=== PATIENT | female | born 1935 | race Caucasian/White ===

== ENCOUNTER 2016-11-09 11:35 | Inpatient (IN) | payer OTHER, MEDICARE ==
[2016-11-09 11:38] VITALS: BP 175/80; PULSE 84; RESP 20; O2SAT 96
[2016-11-09] MEDS ORDERED: TRIA37.53 PO (12:12)
[2016-11-09] MEDS ORDERED: AMLO2.5T PO (12:12)
[2016-11-09] MEDS ORDERED: SODIUM CHLORIDE 0.9% FLUSH 5 ML FLUSH IV FLUSH PRN (12:15)
[2016-11-09 12:30] VITALS: O2SAT 96
--- NOTE | 2016-11-09 12:50 | RADRPT ---
EXAM DATE/TIME: 11/09/2016 12:31 [facility] COMPARISON: No previous studies available for comparison. INDICATIONS : Weakness, combative. MEDICAL HISTORY : Alzheimer's SURGICAL HISTORY : None. ENCOUNTER: Initial ACUITY: 1 day PAIN SCORE: Non-responsive. LOCATION: Bilateral chest FINDINGS: Lungs are hyperaerated which accentuate the lung markings. There is also likely exaggerated kyphosis of the thoracic spine. Suboptimal visualization of the left lung base. Otherwise, no significant foca l pleural or parenchymal opacities. Cardiomediastinal contours are within normal limits given techniq ue and limitations. A fossa structures are grossly intact. CONCLUSION: 1. Limited visualization of the left lower lobe due to likely exaggerated kyphosis and low lung volum es. Formal PA and lateral views may be obtained if there is clinical findings suspicious for left low er lobe process. 2. Otherwise, no acute cardiopulmonary disease. David Richey MD on November 09, 2016 at 12:47 Board Certified Radiologist. This report was verified electronically.
[2016-11-09 12:58] LABS: BASOPHIL % 0.5 % (0.0-2.0); EOSINOPHIL # 0.1 TH/MM3 (0-0.4); EOSINOPHIL % 1.5 % (0.0-4.0); HEMO FLAGS DIFF FINAL; LYMPH % 16.5 % (9.0-44.0); LYMPHOCYTE # 1.2 TH/MM3 (1.0-4.8); MEAN CORPUSCULAR HEMOGLOBIN 26.6 PG (27.0-34.0); MEAN CORPUSCULAR HGB CONC 32.9 % (32.0-36.0); MONO % 10.6 % (0.0-8.0); NEUT % 70.9 % (16.0-70.0); PLATELET COUNT 266 TH/MM3 (150-450); RED BLOOD COUNT 4.82 MIL/MM3 (4.00-5.30); RED CELL DISTRIBUTION WIDTH 15.3 % (11.6-17.2); WHITE BLOOD COUNT 7.1 TH/MM3 (4.0-11.0)
[2016-11-09 13:08] LABS: APTT (PATIENT) 26.3 SEC (24.3-30.1); INTERNATIONAL NORMALIZED RATIO 0.9 RATIO; PROTHROMBIN TIME - PATIENT 10.3 SEC (9.8-11.6)
[2016-11-09 13:23] LABS: ANION GAP 9 MEQ/L (5-15); AST (GOT) 19 U/L (15-37); BICARBONATE 24.9 MEQ/L (21.0-32.0); BLOOD UREA NITROGEN 31 MG/DL (7-18); CHLORIDE 104 MEQ/L (98-107); GLOMERULAR FILTRATION RATE 27 ML/MIN (>89); POTASSIUM 3.9 MEQ/L (3.5-5.1); SODIUM (NA) 138 MEQ/L (136-145)
[2016-11-09 13:28] LABS: ALKALINE PHOSPHATASE 91 U/L (45-117); ALT (GPT) 22 U/L (10-53); TOTAL BILIRUBIN ADULT 0.8 MG/DL (0.2-1.0)
[2016-11-09 13:32] LABS: BACTERIA, URINE FEW /hpf; BLOOD, URINE NEG (NEG); COMMENT (UR) CATH-CULTURE IND; CULTURE IF INDICATED CATH CULTURE IND; GLUCOSE,URINE NEG (NEG); HYALINE CAST, URINE 4 /lpf (RARE); KETONE, URINE NEG (NEG); NITRITE,URINE NEG (NEG); PH, URINE 5.5 (5.0-8.5); RENAL EPITHELIAL CELLS <1 /hpf; URINE COLOR YELLOW (YELLW/STRAW)
[2016-11-09] MEDS ORDERED: cefTRIAXone INJ 1,000 MG in SODIUM CHLORIDE 0.9% INJ 100 ML IV STA (13:37)
--- NOTE | 2016-11-09 13:44 | RADRPT ---
EXAM DATE/TIME: 11/09/2016 13:18 [facility] COMPARISON: No previous studies available for comparison. INDICATIONS : Altered mental status,confused RADIATION DOSE: 56.39 CTDIvol (mGy) MEDICAL HISTORY : Dementia. SURGICAL HISTORY : None. ENCOUNTER: Initial ACUITY: 1 day PAIN SCALE: 0/10 LOCATION: cranial TECHNIQUE: Multiple contiguous axial images were obtained of the head. Using automated exposure control and adj ustment of the mA and/or kV according to patient size, radiation dose was kept as low as reasonably a chievable to obtain optimal diagnostic quality images. DICOM format image data is available electro nically for review and comparison. FINDINGS: There is no evidence for intracranial hemorrhage, mass effect, mass lesions, or edema. The visualize d bony structures appear intact. Moderate degree of brain atrophy is seen. Moderate periventricular white matter changes are seen nonspecific mostly consistent with chronic small vessel ischemic change s. There are no signs of acute infarction for technique. CONCLUSION: Chronic and small vessel ischemic changes without any evidence for acute hemorrhage o r mass effect. Kasia Gallego MD on November 09, 2016 at 13:41 Board Certified Radiologist. This report was verified electronically.
--- NOTE | 2016-11-09 14:02 | PD ---
HPI Chief Complaint: Altered Mental Status Time Seen by Provider: 12:05 Travel History International Travel<30 days: No Contact w/Intl Traveler<30days: No Traveled to known affect area: No History of Present Illness HPI Patient is an 81-year-old female who is brought in by family because they are having a hard time taking care of her at home. Patient is demented and has been becoming increasingly aggressive and violent. The family is concerned that she is not sleeping at night and that she will leave the house. She herself is unable to provide any history. The daughter says that she was living in [place] to about 3 weeks ago when she brought her down here to live with her. She is unsure of her prior medical history, but knows that she has high blood pressure and she was diagnosed with dementia while she lived in [place] with her other daughter. PFSH Past Medical History ?: Not Menopausal: Yes Social History Alcohol Use: No Tobacco Use: No Allergies-Medications (Allergen,Severity, Reaction): Coded Allergies: No Known Allergies (Unverified , 11/09/16) Reported Meds & Prescriptions Reported Meds & Active Scripts Active Reported Triamterene-Hydrochlorothiazide 37.5-25 Mg Cap 1 Cap PO DAILY Amlodipine (Amlodipine Besylate) 2.5 Mg Tab 2.5 Mg PO DAILY Review of Systems ROS Limitations: Altered Mental Status Physical Exam Narrative GENERAL: Awake and alert, in no acute distress. SKIN: Focused skin assessment warm/dry. HEAD: Atraumatic. Normocephalic. EYES: Pupils equal and round. No scleral icterus. ENT: Mucous membranes pink and moist. NECK: Trachea midline. No JVD. CARDIOVASCULAR: Regular rate and rhythm. No murmur appreciated. RESPIRATORY: No accessory muscle use. Clear to auscultation. Breath sounds equal bilaterally. GASTROINTESTINAL: Abdomen soft, non-tender, nondistended. MUSCULOSKELETAL: No obvious deformities. No clubbing. No cyanosis. No edema. NEUROLOGICAL: Awake and alert, oriented to person only. No obvious cranial nerve deficits. Motor grossly within normal limits. Normal speech. Data Data Last Documented VS Vital Signs Date Time Temp Pulse Resp B/P Pulse Ox O2 Delivery O2 Flow Rate FiO2 11/09/16 12:30 96 Nasal Cannula 2 11/09/16 11:38 84 20 175/80 Orders Electrocardiogram (11/09/16 ) Complete Blood Count With Diff (11/09/16 12:14) Comprehensive Metabolic Panel (11/09/16 12:14) Prothrombin Time / Inr (Pt) (11/09/16 12:14) Act Partial Throm Time (Ptt) (11/09/16 12:14) Troponin I (11/09/16 12:14) Thyroid Stimulating Hormone (11/09/16 12:14) Urinalysis - C+S If Indicated (11/09/16 12:14) Ua Includes Microscopic (11/09/16 12:14) Chest, Single Ap (11/09/16 12:14) Ct Brain W/O Iv Contrast(Rout) (11/09/16 12:14) Blood Glucose (11/09/16 12:14) Ecg Monitoring (11/09/16 12:14) Iv Access Insert/Monitor (11/09/16 12:14) Oximetry (11/09/16 12:14) Sodium Chloride 0.9% Flush (Ns Flush) (11/09/16 12:15) Urine Culture (11/09/16 13:10) Ceftriaxone Inj (Rocephin Inj) (11/09/16 13:37) Psych Screen (11/09/16 14:01) Amlodipine (Norvasc) (11/10/16 09:00) Creatine Kinase (Cpk) (11/09/16 14:02) Chest, Pa & Lat (11/09/16 ) Sodium Chlor 0.9% 1000 Ml Inj (Ns 1000 M (11/09/16 14:15) Basic Metabolic Panel (Bmp) (11/10/16 06:00) Magnesium (Mg) (11/10/16 06:00) Cefuroxime (Ceftin) (11/09/16 21:00) Clonidine (Catapres) (11/09/16 14:15) Vital Signs (Adult) Q4H (11/09/16 14:02) Activity Oob With Assistance (11/09/16 14:02) Intake + Output ЕКАТЕРИНА.QSHIFT (11/09/16 14:02) Diet Heart Healthy (11/09/16 Dinner) Sodium Chloride 0.9% Flush (Ns Flush) (11/09/16 14:15) Acetaminophen (Tylenol) (11/09/16 14:15) Ondansetron Inj (Zofran Inj) (11/09/16 14:15) Resp Oxygen Kei C Titrat 1-4 L (11/09/16 ) Case Management Consult (11/09/16 14:02) Scd Bilateral/Knee High ЕКАТЕРИНА.BID (11/09/16 14:02) Naloxone Inj (Narcan Inj) (11/09/16 14:15) Docusate Sodium-Senna (Katharine-Colace) (11/09/16 21:00) Sennosides (Senokot) (11/09/16 14:15) Lactulose Liq (Lactulose Liq) (11/09/16 14:15) ^ Other Nursing Orders (11/09/16 14:02) Lorazepam Inj (Ativan Inj) (11/09/16 14:15) Admit Order (Ed Use Only) (11/09/16 15:52) Labs Laboratory Tests Test 11/09/16 11/09/16 12:29 13:10 White Blood Count 7.1 TH/MM3 Red Blood Count 4.82 MIL/MM3 Hemoglobin 12.8 GM/DL Hematocrit 39.0 % Mean Corpuscular Volume 81.0 FL Mean Corpuscular Hemoglobin 26.6 PG Mean Corpuscular Hemoglobin 32.9 % Concent Red Cell Distribution Width 15.3 % Platelet Count 266 TH/MM3 Mean Platelet Volume 8.1 FL Neutrophils (%) (Auto) 70.9 % Lymphocytes (%) (Auto) 16.5 % Monocytes (%) (Auto) 10.6 % Eosinophils (%) (Auto) 1.5 % Basophils (%) (Auto) 0.5 % Neutrophils # (Auto) 5.0 TH/MM3 Lymphocytes # (Auto) 1.2 TH/MM3 Monocytes # (Auto) 0.7 TH/MM3 Eosinophils # (Auto) 0.1 TH/MM3 Basophils # (Auto) 0.0 TH/MM3 CBC Comment DIFF FINAL Differential Comment Prothrombin Time 10.3 SEC Prothromb Time International 0.9 RATIO Ratio Activated Partial 26.3 SEC Thromboplast Time Sodium Level 138 MEQ/L Potassium Level 3.9 MEQ/L Chloride Level 104 MEQ/L Carbon Dioxide Level 24.9 MEQ/L Anion Gap 9 MEQ/L Blood Urea Nitrogen 31 MG/DL Creatinine 1.80 MG/DL Estimat Glomerular Filtration 27 ML/MIN Rate Random Glucose 104 MG/DL Calcium Level 9.1 MG/DL Total Bilirubin 0.8 MG/DL Aspartate Amino Transf 19 U/L (AST/SGOT) Alanine Aminotransferase 22 U/L (ALT/SGPT) Alkaline Phosphatase 91 U/L Troponin I LESS THAN 0.02 NG/ML Total Protein 7.6 GM/DL Albumin 3.7 GM/DL Thyroid Stimulating Hormone 5.190 uIU/ML 3rd Gen Urine Color YELLOW Urine Turbidity HAZY Urine pH 5.5 Urine Specific [place] 1.013 Urine Protein NEG mg/dL Urine Glucose (UA) NEG mg/dL Urine Ketones NEG mg/dL Urine Occult Blood NEG Urine Nitrite NEG Urine Bilirubin NEG Urine Urobilinogen LESS THAN 2.0 MG/DL Urine Leukocyte Esterase LARGE Urine RBC 4 /hpf Urine WBC 27 /hpf Urine Renal Epithelial Cells <1 /hpf Urine Bacteria FEW /hpf Urine Hyaline Casts 4 /lpf Microscopic Urinalysis Comment CATH-CULTURE IND MDM Medical Decision Making Medical Screen Exam Complete: Yes Emergency Medical Condition: Yes Differential Diagnosis Electrolyte abnormality versus infection versus dementia Narrative Course Patient is an 81-year-old female brought in by family due to worsening dementia. On exam, patient is oriented to person only. IV established, labs sent. Labs show no acute abnormalities. Urinalysis is positive for infection. She is given a dose of Rocephin. Patient placed under Lopez act as she is a threat to herself. She'll be admitted to psychiatry with a medicine consult to manage her UTI. Diagnosis Primary Impression: UTI (urinary tract infection) Qualified Code: N30.00 - Acute cystitis without hematuria Additional Impression: Dementia Qualified Code: F03.91 - Dementia with behavioral disturbance, unspecified dementia type Admitting Information Admitting Physician Requests: Admit Condition: Nicol Salazar MD Nov 09, 2016 14:02
[2016-11-09] MEDS ORDERED: SENNOSIDES 8.6 MG TAB PO PRN (14:15)
[2016-11-09] MEDS ORDERED: LORazepam 2 MG/ML VIAL IV PUSH ONE ×2 (14:15→17:30)
[2016-11-09] MEDS ORDERED: ONDANSETRON HCL 4 MG/2 ML VIAL IVP PRN (14:15)
[2016-11-09] MEDS ORDERED: SODIUM CHLOR 0.9% 1000 ML INJ 1,000 ML IV SCH (14:15)
[2016-11-09] MEDS ORDERED: SODIUM CHLORIDE 0.9% FLUSH 10 ML FLUSH IV FLUSH PRN (14:15)
[2016-11-09] MEDS ORDERED: cloNIDine HCL 0.1 MG TAB PO PRN (14:15)
[2016-11-09] MEDS ORDERED: NALOXONE HCL 0.4 MG/ML AMP IV PRN (14:15)
[2016-11-09] MEDS ORDERED: ACETAMINOPHEN 325 MG TAB PO PRN ×2 (14:15→21:30)
[2016-11-09] MEDS ORDERED: LACTULOSE SYRUP 20 GM/30 ML CUP PO PRN (14:15)
--- NOTE | 2016-11-09 16:12 | EKG ---
Date Performed: 11/09/2016 Time Performed: 12:23:20 PTAGE: 81 years EKG: Sinus rhythm WITH FIRST DEGREE AV BLOCK POSSIBLE LEFT ATRIAL ENLARGEMENT MARKED LEFT AXIS DEVIATION LOW QRS VOLTA GE IN PRECORDIAL LEADS INCOMPLETE RIGHT BUNDLE BRANCH BLOCK POSSIBLE ANTERIOR MYOCARDIAL INFARCTION A BNORMAL ECG NO PREVIOUS TRACING DOCTOR: Edel Coppola Interpretating Date/Time 11/09/2016 16:10:13
[2016-11-09 16:27] VITALS: BP 158/60; PULSE 84; RESP 18; O2SAT 99
--- NOTE | 2016-11-09 18:47 | PD.CONS ---
HPI Service [facility] Consult Requested By Dr. Bañuelos Reason for Consult Medical management Primary Care Physician No Primary Care Physician Diagnoses: History of Present Illness This is a 81-year-old female with a history of dementia. She was brought in by family because of increasing agitation. She moved from [place] about 2 weeks ago and has been noted to be restless, not eating, not sleeping with increasing agitation. She has been noncompliant with her medical therapy. In the emergency department, she has been placed under Lopez act. Consultation has been requested by her attending to evaluate and manage multiple medical conditions. She has uncontrolled hypertension secondary to noncompliance, also has acute kidney injury likely secondary to dehydration as well as from diuretics and abnormal urinalysis and has been started on Rocephin. Patient is awake and oriented to person only. She has been agitated in the emergency department and required IV Ativan. At this time she is calm and cooperative but confused and unable to provide any meaningful history. According to her family, no fever, cough, vomiting, UTI symptoms and diarrhea. All other systems reviewed negative Review of Systems Except as stated in HPI: all other systems reviewed are Neg Past Family Social History Allergies: Coded Allergies: No Known Allergies (Unverified , 11/09/16) Past Medical History As previously mentioned Past Surgical History Breast surgery secondary to cancer Reported Medications Reported Meds & Active Scripts Active Reported Triamterene-Hydrochlorothiazide 37.5-25 Mg Cap 1 Cap PO DAILY Amlodipine (Amlodipine Besylate) 2.5 Mg Tab 2.5 Mg PO DAILY Family History Cancer type not known Social History Doesn't smoke or drink Physical Exam Vital Signs Vital Signs Date Time Temp Pulse Resp B/P Pulse Ox O2 Delivery O2 Flow Rate FiO2 11/09/16 17:08 Nasal Cannula 2.00 11/09/16 16:28 18 99 Room Air 11/09/16 16:27 84 18 158/60 99 Room Air 11/09/16 12:30 96 Nasal Cannula 2 11/09/16 11:38 84 20 175/80 96 Room Air Physical Exam GENERAL: This is a well-nourished, well-developed patient, in no apparent distress. SKIN: No rashes, ecchymoses or lesions. Cool and dry. HEAD: Atraumatic. Normocephalic. No temporal or scalp tenderness. EYES: Pupils equal round and reactive. Extraocular motions intact. No scleral icterus. No injection or drainage. ENT: Nose without bleeding, purulent drainage or septal hematoma. Throat without erythema, tonsillar hypertrophy or exudate. Uvula midline. Airway patent. NECK: Trachea midline. No JVD or lymphadenopathy. Supple, nontender, no meningeal signs. CARDIOVASCULAR: Regular rate and rhythm without murmurs, gallops, or rubs. RESPIRATORY: Clear to auscultation. Breath sounds equal bilaterally. No wheezes , rales, or rhonchi. GASTROINTESTINAL: Abdomen soft, non-tender, nondistended. No CVA tenderness. No guarding. MUSCULOSKELETAL: Extremities without clubbing, cyanosis with left upper extremity lymphedema secondary to breast cancer surgery. No joint tenderness, effusion, or edema noted. No calf tenderness. Negative Homans sign bilaterally. NEUROLOGICAL: Awake and alert. Cranial nerves II through XII intact. Motor and sensory grossly within normal limits. Five out of 5 muscle strength in all muscle groups. Normal speech. Laboratory Laboratory Tests Test 11/09/16 11/09/16 12:29 13:10 White Blood Count 7.1 Red Blood Count 4.82 Hemoglobin 12.8 Hematocrit 39.0 Mean Corpuscular Volume 81.0 Mean Corpuscular Hemoglobin 26.6 Mean Corpuscular Hemoglobin 32.9 Concent Red Cell Distribution Width 15.3 Platelet Count 266 Mean Platelet Volume 8.1 Neutrophils (%) (Auto) 70.9 Lymphocytes (%) (Auto) 16.5 Monocytes (%) (Auto) 10.6 Eosinophils (%) (Auto) 1.5 Basophils (%) (Auto) 0.5 Neutrophils # (Auto) 5.0 Lymphocytes # (Auto) 1.2 Monocytes # (Auto) 0.7 Eosinophils # (Auto) 0.1 Basophils # (Auto) 0.0 CBC Comment DIFF FINAL Differential Comment Prothrombin Time 10.3 Prothromb Time International 0.9 Ratio Activated Partial 26.3 Thromboplast Time Sodium Level 138 Potassium Level 3.9 Chloride Level 104 Carbon Dioxide Level 24.9 Anion Gap 9 Blood Urea Nitrogen 31 Creatinine 1.80 Estimat Glomerular Filtration 27 Rate Random Glucose 104 Calcium Level 9.1 Total Bilirubin 0.8 Aspartate Amino Transf 19 (AST/SGOT) Alanine Aminotransferase 22 (ALT/SGPT) Alkaline Phosphatase 91 Troponin I LESS THAN 0.02 Total Protein 7.6 Albumin 3.7 Thyroid Stimulating Hormone 5.190 3rd Gen Urine Color YELLOW Urine Turbidity HAZY Urine pH 5.5 Urine Specific [place] 1.013 Urine Protein NEG Urine Glucose (UA) NEG Urine Ketones NEG Urine Occult Blood NEG Urine Nitrite NEG Urine Bilirubin NEG Urine Urobilinogen LESS THAN 2.0 Urine Leukocyte Esterase LARGE Urine RBC 4 Urine WBC 27 Urine Renal Epithelial Cells <1 Urine Bacteria FEW Urine Hyaline Casts 4 Microscopic Urinalysis Comment CATH-CULTURE IND Date/Time Procedure Status Source Growth 11/09/16 13:10 Urine Culture Received Urine Catheterized Urine Pending Result Diagram: 11/09/16 1229 11/09/16 1229 Imaging EKG tracing interpreted by me with sinus rhythm first degree AV block, incomplete RBBB and poor R-wave Chest x-ray image interpreted by me with no acute cardiopulmonary disease Last Impressions Head CT 11/09/161213 Signed Impressions: Service Date/Time: Wednesday, November 09, 2016 13:18 - CONCLUSION: Chronic and small vessel ischemic changes without any evidence for acute hemorrhage or mass effect. Kasia Gallego MD Chest X-Ray 11/09/161213 Signed Impressions: Service Date/Time: Monday, November 09, 2016 12:31 - CONCLUSION: 1. 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 Formal PA and lateral views may be obtained if there is clinical findings suspicious for left lower lobe process. 2. Otherwise, no acute cardiopulmonary disease. David Richey MD Assessment and Plan Assessment and Plan This is a 81-year-old female with a history of dementia. She was brought in by family because of increasing agitation. She moved from [place] about 2 weeks ago and has been noted to be restless, not eating, not sleeping with increasing agitation. She has been noncompliant with her medical therapy. In the emergency department, she has been placed under Lopez act. Consultation has been requested by her attending to evaluate and manage multiple medical conditions. Uncontrolled hypertension secondary to noncompliance. Start Norvasc with as needed clonidine Acute kidney injury likely secondary to dehydration as well as from diuretics. Start IV hydration and avoid nephrotoxins. Obtain repeat BMP Abnormal urinalysis likely secondary to UTI obviously can contribute to her agitation. She Rocephin and will continue Ceftin follow-up culture. Repeat chest x-ray when patient more cooperative DVT prophylaxis with SCD. Patient is ambulatory. Discussed Condition With Patient and family Herbert Parker MD Nov 09, 2016 18:46
[2016-11-09] MEDS: DOCUSATE SODIUM 50 MG/SENNA 8.6 MG TAB PO SCH (21:00)
[2016-11-09] MEDS: CEFUROXIME AXETIL 250 MG TAB PO SCH (21:00)
[2016-11-09] MEDS ORDERED: MAGNESIUM HYDROXIDE SUSP 30 ML CUP PO PRN (21:30)
[2016-11-09] MEDS ORDERED: diphenhydrAMINE HCL 50 MG/ML VIAL - HS PRN IM (21:30)
[2016-11-09] MEDS ORDERED: diphenhydrAMINE HCL 50 MG CAP - HS PRN PO (21:30)
[2016-11-09] MEDS ORDERED: ALUMINUM/MAGNESIUM/SIMETH 30 ML CUP PO PRN (21:30)
[2016-11-09 21:43] VITALS: BP 154/80; PULSE 81; RESP 17; TEMP 98.3
[2016-11-10 05:28] VITALS: BP 156/78; PULSE 73; RESP 17; TEMP 97.5; O2SAT 81
[2016-11-10 06:39] VITALS: BP 156/78; PULSE 73; RESP 17; TEMP 97.5; O2SAT 81
[2016-11-10 06:54] VITALS: O2SAT 94
[2016-11-10 08:00] VITALS: O2SAT 94
[2016-11-10] MEDS: CEFUROXIME AXETIL 250 MG TAB PO SCH ×2 (08:38→21:00)
[2016-11-10] MEDS: DOCUSATE SODIUM 50 MG/SENNA 8.6 MG TAB PO SCH ×2 (08:39→21:00)
[2016-11-10] MEDS: amLODIPine BESYLATE 5 MG TAB PO SCH (08:39)
[2016-11-10] MEDS ORDERED: HALOPERIDOL LACTATE 5 MG/ML AMP IM STA (09:06)
--- NOTE | 2016-11-10 09:21 | HHI.PR ---
Subjective Remarks Follow-up UTI and acute kidney injury. Patient was agitated received Haldol IM. Discussed with RN, patient not eating and spitting out food and medications. Objective Vitals Vital Signs Date Time Temp Pulse Resp B/P Pulse Ox O2 Delivery O2 Flow Rate FiO2 11/10/16 06:54 94 11/10/16 06:39 97.5 73 17 156/78 81 11/10/16 05:28 97.5 73 17 156/78 81 11/09/16 21:43 98.3 81 17 154/80 11/09/16 17:08 Nasal Cannula 2.00 11/09/16 16:28 18 99 Room Air 11/09/16 16:27 84 18 158/60 99 Room Air 11/09/16 12:30 96 Nasal Cannula 2 11/09/16 11:38 84 20 175/80 96 Room Air I/O 11/09/16 11/09/16 11/09/16 11/10/16 11/10/16 11/10/16 07:00 15:00 23:00 07:00 15:00 23:00 Intake Total 0 ml Output Total 200 ml Balance -200 ml 0 ml Intake Oral 0 ml Output Urine Total 200 ml # Voids 1 1 Result Diagram: 11/09/16 1229 11/09/16 1229 Imaging Last Impressions Head CT 11/09/161213 Signed Impressions: Service Date/Time: Wednesday, November 09, 2016 13:18 - CONCLUSION: Chronic and small vessel ischemic changes without any evidence for acute hemorrhage or mass effect. Kasia Gallego MD Chest X-Ray 11/09/16 1214 Signed Impressions: Service Date/Time: Wednesday, November 09, 2016 12:31 - CONCLUSION: 1. 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 Formal PA and lateral views may be obtained if there is clinical findings suspicious for left lower lobe process. 2. Otherwise, no acute cardiopulmonary disease. David Richey MD Objective Remarks GENERAL: This is a well-nourished, well-developed patient, in no apparent distress. SKIN: No rashes, ecchymoses or lesions. Cool and dry. HEAD: Atraumatic. Normocephalic. No temporal or scalp tenderness. EYES: Pupils equal round and reactive. Extraocular motions intact. No scleral icterus. No injection or drainage. ENT: Nose without bleeding, purulent drainage or septal hematoma. Throat without erythema, tonsillar hypertrophy or exudate. Uvula midline. Airway patent. NECK: Trachea midline. No JVD or lymphadenopathy. Supple, nontender, no meningeal signs. CARDIOVASCULAR: Regular rate and rhythm without murmurs, gallops, or rubs. RESPIRATORY: Clear to auscultation. Breath sounds equal bilaterally. No wheezes , rales, or rhonchi. GASTROINTESTINAL: Abdomen soft, non-tender, nondistended. No CVA tenderness. No guarding. MUSCULOSKELETAL: Extremities without clubbing, cyanosis with left upper extremity lymphedema secondary to breast cancer surgery. No joint tenderness, effusion, or edema noted. No calf tenderness. Negative Homans sign bilaterally. NEUROLOGICAL: Awake. Cranial nerves II through XII intact. Motor and sensory grossly within normal limits. Five out of 5 muscle strength in all muscle groups. Normal speech. A/P Assessment and Plan This is a 81-year-old female with a history of dementia. She was brought in by family because of increasing agitation. She moved from [place] about 2 weeks ago and has been noted to be restless, not eating, not sleeping with increasing agitation. She has been noncompliant with her medical therapy. In the emergency department, she has been placed under Lopez act. Consultation has been requested by her attending to evaluate and manage multiple medical conditions. Uncontrolled hypertension secondary to noncompliance. Improving continue Norvasc with as needed clonidine Acute kidney injury likely secondary to dehydration as well as from diuretics. Improving but with poor oral intake continue IV hydration and avoid nephrotoxins. Obtain repeat BMP in the morning Abnormal urinalysis likely secondary to UTI obviously can contribute to her agitation. Received Rocephin in the emergency department. Continue Ceftin follow-up culture. Rocephin IV as needed if patient refuses to take Ceftin Repeat chest x-ray when patient more cooperative DVT prophylaxis with SCD. Patient is ambulatory. Discharge Planning Not medically stable and cleared for transfer to regular psychiatry floor at this time Herbert Parker MD Nov 10, 2016 09:21
[2016-11-10 10:30] LABS: ANION GAP 11 MEQ/L (5-15); BICARBONATE 20.5 MEQ/L (21.0-32.0); BLOOD UREA NITROGEN 25 MG/DL (7-18); CHLORIDE 107 MEQ/L (98-107); GLOMERULAR FILTRATION RATE 33 ML/MIN (>89); MAGNESIUM 2.3 MG/DL (1.5-2.5); SODIUM (NA) 138 MEQ/L (136-145)
[2016-11-10 10:33] LABS: HDL CHOLESTEROL 37.8 MG/DL (40.0-60.0); LDL CHOLESTEROL 193 MG/DL (0-99)
[2016-11-10] MEDS ORDERED: cefTRIAXone INJ 1,000 MG in SODIUM CHLORIDE 0.9% INJ 100 ML IV PRN (11:00)
[2016-11-10] MEDS: SODIUM CHLOR 0.9% 1000 ML INJ 1,000 ML IV SCH (11:48)
[2016-11-10] MEDS: QUEtiapine FUMARATE 25 MG TAB PO SCH (11:49)
--- NOTE | 2016-11-10 14:38 | HHI.HP ---
Provisional Diagnosis Admission Date Nov 09, 2016 at 15:54 [place] I. Dementia with behavioral disturbances [place] II. Deferred [place] III. HTN, acute renal failure, hypothyroidism Certification of Person's Competence To Provide Express and Informed Consent I have personally examined Elisha Blount , a person being served at [facility] on, Nov 10, 2016 14:26. Express and informed consent means consent voluntarily given in writing, by a competent person, after sufficient explanation and disclosure of the subject matter involved to enable the person to make a knowing and willful decision without any element of force, fraud, deceit, duress, or other form of constraint or coercion. This person is 18 years of age or older, is not now known to be incompetent to consent to treatment with a guardian advocate, and does not have a health care surrogate or proxy currently making medical treatment decisions. I have found this person to be one of the following: [] Competent to provide express and informed consent, as defined above, for voluntary admission to this facility and is competent to provide express and informed consent for treatment. He/she has the consistent capacity to make well reasoned, willful, and knowing decisions concerning his or her medical or mental health treatment. The person fully and consistently understands the purpose of the admission for examination/placement and is fully capable of personally exercising all rights assured under [place] [x] Incompetent to provide express and informed consent to voluntary admission, and this is incompetent to provide express and informed consent to treatment. The person must be transferred to involuntary status and a petition for a guardian advocate filed with the Circuit Court. [] Refusing to provide express and informed consent to voluntary admission but is competent to provide express and informed consent for treatment. The person must be discharged or transferred to involuntary status. Form shall be completed within 24 hours of a person's arrival at the receiving facility and filed in the clinical record of each person: 1. Admitted on a voluntary basis 2. Permitted to provide express and informed consent to his/her own treatment 3. Allowed to transfer from involuntary to voluntary status 4. Prior to permitting a person to consent to his or her own treatment after having been previously found incompetent to consent to treatment. History of Present Illness Capacity: Lacks Capacity HPI The patient is a 81-year-old woman, domicile with her daughter in [place], she recently moved to [place] for in [place], , mother of 3 kids, with psychiatric history of dementia, no previous psychiatric hospitalizations, no previous suicidal attempts, she is not in psychotropics, medical history hypothyroidism, hypertension, who was brought in by family because of increasing agitation. She moved from [place] about 2 weeks ago and has been noted to be restless, not eating, not sleeping with increasing agitation. She has been noncompliant with her medical therapy. In the emergency department, she has been placed under Lopez act. She was already seeing by hospitalist due to uncontrolled hypertension secondary to noncompliance, also has acute kidney injury likely secondary to dehydration as well as from diuretics and abnormal urinalysis and has been started on Rocephin. On psychiatric evaluation today patient was very agitated, disorganized, disoriented, unable to provide any meaningful information for the psychiatric assessment. Patient had to be medicated with Haldol 1 mg IM in order to help her to calm down. I spoke personally with her daughter Eve Peng, who says that the patient came to weeks ago from [place]. There her caregiver was her other daughter, who allegedly was not taking good care of her. Patient has not been taking her medication for hypothyroidism and hypertension. Apparently in the past she was psychotropics for dementia. She clarifies that the patient doesn't have any psychiatric history, no suicidal attempts. 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 In the last 2 weeks, since the patient has been living with her in [place], patient has being presenting increased in intensity, severity and frequency episodes of aggressive behavior and agitation at home. She is interested in placing the patient in a more structured environment for her safety. Review of Systems ROS Limitations: Uncooperative Past Psych History Violence risk - self (6 mos) Increased Substance Abuse History Drugs/Alcohol past 12 months She doesn't use any drugs or alcohol Past Family Social History Coded Allergies: No Known Allergies (Unverified , 11/09/16) Reported Medications Triamterene-Hydrochlorothiazide 37.5-25 Mg Cap1 Cap PO DAILY #30 CAP Ref 0 11/09/16 Amlodipine 2.5 Mg Tab2.5 Mg PO DAILY #30 TAB Ref 0 11/09/16 Current Medications Medications (Trade) Dose Ordered Sig/Laine Route Start Time Stop Time Status Last Admin (Norvasc) 2.5 mg DAILY PO 11/10/16 09:00 11/10/16 08:39 (Ceftin) 250 mg Q12HR PO 11/09/16 21:00 11/16/16 20:59 11/10/16 08:38 (Catapres) 0.1 mg Q6H PRN PO 11/09/16 14:15 (NS Flush) 2 ml UNSCH PRN IV FLUSH 11/09/16 14:15 (Tylenol) 650 mg Q4H PRN PO 11/09/16 14:15 (Zofran Inj) 4 mg Q6H PRN IVP 11/09/16 14:15 (Narcan Inj) 0.4 mg UNSCH PRN IV 11/09/16 14:15 (Katharine-Colace) 1 tab BID PO 11/09/16 21:00 11/10/16 08:39 (Senokot) 17.2 mg Q12H PRN PO 11/09/16 14:15 (Lactulose Liq) 30 ml DAILY PRN PO 11/09/16 14:15 (Atarax) 50 mg Q6H PRN PO 11/09/16 21:30 (Benadryl) 50 mg HS PRN PO 11/09/16 21:30 (Benadryl Inj) 50 mg HS PRN IM 11/09/16 21:30 (Tylenol) 650 mg Q4H PRN PO 11/09/16 21:30 (Milk Of Magnesia Liq) 30 ml DAILY PRN PO 11/09/16 21:30 (Mag-Al Plus Susp Liq) 30 ml Q6H PRN PO 11/09/16 21:30 Quetiapine Fumarate 25 mg 25 mg BID@09,12 PO 11/10/16 12:00 11/10/16 11:49 Ceftriaxone Sodium 1000 mg/ Sodium Chloride 100 ml @ 200 mls/hr Q24H PRN IV 11/10/16 11:00 (NS 1000 ml Inj) 1,000 ml @ 42 mls/hr [id number] IV 11/10/16 11:00 11/10/16 11:48 Family History Patient's mother suffer of dementia Social History Patient was born and raised in [place], she lives in [place] most of her life, she came to live in [place] with her daughter 2 weeks ago, she is , supported by intermediate benefits, highest level of education is high school Patient's Strengths (min. 2) Family support Physical Exam Vital Signs Vital Signs Date Time Temp Pulse Resp B/P Pulse Ox O2 Delivery O2 Flow Rate FiO2 11/10/16 06:54 94 11/10/16 06:39 97.5 73 17 156/78 11/09/16 17:08 Nasal Cannula 2.00 I/O 11/09/16 11/09/16 11/09/16 07:59 15:59 23:59 Intake Total 0 ml Output Total 200 ml Balance -200 ml 0 ml Lab Results Laboratory Tests Test 11/09/16 11/09/16 12:29 13:10 White Blood Count 7.1 Red Blood Count 4.82 Hemoglobin 12.8 Hematocrit 39.0 Mean Corpuscular Volume 81.0 Mean Corpuscular Hemoglobin 26.6 Mean Corpuscular Hemoglobin 32.9 Concent Red Cell Distribution Width 15.3 Platelet Count 266 Mean Platelet Volume 8.1 Neutrophils (%) (Auto) 70.9 Lymphocytes (%) (Auto) 16.5 Monocytes (%) (Auto) 10.6 Eosinophils (%) (Auto) 1.5 Basophils (%) (Auto) 0.5 Neutrophils # (Auto) 5.0 Lymphocytes # (Auto) 1.2 Monocytes # (Auto) 0.7 Eosinophils # (Auto) 0.1 Basophils # (Auto) 0.0 CBC Comment DIFF FINAL Differential Comment Prothrombin Time 10.3 Prothromb Time International 0.9 Ratio Activated Partial 26.3 Thromboplast Time Sodium Level 138 Potassium Level 3.9 Chloride Level 104 Carbon Dioxide Level 24.9 Anion Gap 9 Blood Urea Nitrogen 31 Creatinine 1.80 Estimat Glomerular Filtration 27 Rate Random Glucose 104 Calcium Level 9.1 Total Bilirubin 0.8 Aspartate Amino Transf 19 (AST/SGOT) Alanine Aminotransferase 22 (ALT/SGPT) Alkaline Phosphatase 91 Troponin I LESS THAN 0.02 Total Protein 7.6 Albumin 3.7 Thyroid Stimulating Hormone 5.190 3rd Gen Urine Color YELLOW Urine Turbidity HAZY Urine pH 5.5 Urine Specific [place] 1.013 Urine Protein NEG Urine Glucose (UA) NEG Urine Ketones NEG Urine Occult Blood NEG Urine Nitrite NEG Urine Bilirubin NEG Urine Urobilinogen LESS THAN 2.0 Urine Leukocyte Esterase LARGE Urine RBC 4 Urine WBC 27 Urine Renal Epithelial Cells <1 Urine Bacteria FEW Urine Hyaline Casts 4 Microscopic Urinalysis Comment CATH-CULTURE IND Date/Time Procedure Status Source Growth 11/09/16 13:10 Urine Culture Received Urine Catheterized Urine Pending Result Diagram: 11/09/16 1229 11/09/16 1229 Mental Status Examination Limited due to the lack of cooperation, patient had to be medicated due to agitation Appearance Elderly woman, good hygiene Uncooperative, agitated Assessment & Plan Problem List: (1) Dementia Assessment & Plan: Patient with advanced dementia, presenting frequent episodes of agitation and aggressiveness increased in severity and intensity in the last weeks. Patient has an underlying UTI, increased TSH, SEBAS, which could account for delirium superimposed to dementia. Age and treated with aggressive hydration and ceftriaxone. We will start Seroquel 25 mg twice a day to control behavior. We will order Haldol 1 mg IM every 8 hours when necessary aggressive behavior and agitation. postal worker intervention to start a safe discharge planning. ICD Code: F03.90 Assessment & Plan Estimated LOS: days Problem Qualifiers (1) Dementia: Qualified Code: F03.91 - Dementia with behavioral disturbance, unspecified dementia type Emmanuel Camarillo MD Nov 10, 2016 14:38
[2016-11-10] MEDS: hydrOXYzine HCL 50 MG TAB PO PRN (16:47)
[2016-11-10 17:26] LABS: HEMOGLOBIN A1a 1.5 %; HEMOGLOBIN A1b 2.2 %; HEMOGLOBIN Ao 81.7 %; HEMOGLOBIN LA1C 2.3 %; HEMOGLOBIN P3 6.3 %
[2016-11-10] MEDS ORDERED: HALOPERIDOL LACTATE 5 MG/ML AMP IM ONE (17:30)
[2016-11-11 06:10] VITALS: BP 169/88; PULSE 100; RESP 12; TEMP 98.1
[2016-11-11 06:30] LABS: BICARBONATE 25.9 MEQ/L (21.0-32.0); MAGNESIUM 2.3 MG/DL (1.5-2.5); POTASSIUM 3.9 MEQ/L (3.5-5.1)
[2016-11-11] MEDS: QUEtiapine FUMARATE 25 MG TAB PO SCH ×2 (09:00→12:00)
[2016-11-11] MEDS: DOCUSATE SODIUM 50 MG/SENNA 8.6 MG TAB PO SCH ×2 (09:00→21:00)
[2016-11-11] MEDS: CEFUROXIME AXETIL 250 MG TAB PO SCH ×2 (09:00→22:30)
[2016-11-11] MEDS: amLODIPine BESYLATE 5 MG TAB PO SCH (09:00)
--- NOTE | 2016-11-11 10:11 | HHI.PR ---
Subjective Remarks Follow-up UTI and acute kidney injury. She is lethargic after receiving Haldol.. She pulled out her IV Hep-Lock. Discussed with RN, as needed IV fluid if poor oral intake. Follow-up requested outside records specially BMP for comparison Objective Vitals Vital Signs Date Time Temp Pulse Resp B/P Pulse Ox O2 Delivery O2 Flow Rate FiO2 11/11/16 06:10 98.1 100 12 169/88 I/O 11/10/16 11/10/16 11/10/16 11/11/16 11/11/16 11/11/16 07:00 15:00 23:00 07:00 15:00 23:00 Intake Total 0 ml 480 ml 240 ml 1222 ml Balance 0 ml 480 ml 240 ml 1222 ml Intake Oral 0 ml 480 ml 240 ml 660 ml IV Total 562 ml # Voids 1 1 3 Result Diagram: 11/09/16 1229 11/11/16 0525 Imaging Last Impressions Head CT 11/09/16 1214 Signed Impressions: Service Date/Time: Wednesday, November 09, 2016 13:18 - CONCLUSION: Chronic and small vessel ischemic changes without any evidence for acute hemorrhage or mass effect. Kasia Gallego MD Chest X-Ray 11/09/16 1214 Signed Impressions: Service Date/Time: Wednesday, November 09, 2016 12:31 - CONCLUSION: 1. 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 Formal PA and lateral views may be obtained if there is clinical findings suspicious for left lower lobe process. 2. Otherwise, no acute cardiopulmonary disease. David Richey MD Objective Remarks GENERAL: This is a well-nourished, well-developed patient, in no apparent distress. SKIN: No rashes, ecchymoses or lesions. Cool and dry. HEAD: Atraumatic. Normocephalic. No temporal or scalp tenderness. EYES: Pupils equal round and reactive. Extraocular motions intact. No scleral icterus. ENT: Nose without bleeding, purulent drainage or septal hematoma. Throat without erythema, tonsillar hypertrophy or exudate. Uvula midline. Airway patent. NECK: Trachea midline. No JVD or lymphadenopathy. Supple, nontender, no meningeal signs. CARDIOVASCULAR: Regular rate and rhythm without murmurs, gallops, or rubs. RESPIRATORY: Clear to auscultation. Breath sounds equal bilaterally. No wheezes , rales, or rhonchi. GASTROINTESTINAL: Abdomen soft, non-tender, nondistended. No CVA tenderness. No guarding. MUSCULOSKELETAL: Extremities without clubbing, cyanosis with left upper extremity lymphedema secondary to breast cancer surgery. No joint tenderness, effusion, or edema noted. No calf tenderness. Negative Homans sign bilaterally. NEUROLOGICAL: Lethargic. Cranial nerves II through XII intact. Motor and sensory grossly within normal limits. Five out of 5 muscle strength in all muscle groups. Normal speech. A/P Assessment and Plan This is a 81-year-old female with a history of dementia. She was brought in by family because of increasing agitation. She moved from [place] about 2 weeks ago and has been noted to be restless, not eating, not sleeping with increasing agitation. She has been noncompliant with her medical therapy. In the emergency department, she has been placed under Lopez act. Consultation has been requested by her attending to evaluate and manage multiple medical conditions. Uncontrolled hypertension secondary to noncompliance. Improving continue Norvasc with as needed clonidine Acute kidney injury likely secondary to dehydration as well as from diuretics. Improving but with poor oral intake continue IV hydration and avoid nephrotoxins. Obtain repeat BMP in the morning. Follow-up outside records for comparison Escherichia coli UTI obviously can contribute to her agitation. Received Rocephin in the emergency department. Continue Ceftin total of 3 days. Rocephin IV as needed if patient refuses to take Ceftin Repeat chest x-ray when patient more cooperative DVT prophylaxis with SCD. Patient is ambulatory. Discharge Planning Not medically stable and cleared for transfer to regular psychiatry floor at this time Herbert Parker MD Nov 11, 2016 10:11
[2016-11-11] MEDS: SODIUM CHLOR 0.9% 1000 ML INJ 1,000 ML IV SCH (10:49)
--- NOTE | 2016-11-11 12:42 | PD.PSY.CON ---
Provisional Diagnosis Admission Date Nov 09, 2016 at 15:54 [place] I. 1. Dementia with behavioral disturbance [place] II. Deferred History of Present Illness Service Psychiatry Consult Requested By Dr. Camarillo Reason for Consult Second opinion for involuntary psychiatric hospitalization Primary Care Physician No Primary Care Physician HPI From Dr. Camarillo's H&P: The patient is a 81-year-old woman, domicile with her daughter in [place], she recently moved to [place] for in [place], , mother of 3 kids, with psychiatric history of dementia, no previous psychiatric hospitalizations, no previous suicidal attempts, she is not in psychotropics, medical history hypothyroidism, hypertension, who was brought in by family because of increasing agitation. She moved from [place] about 2 weeks ago and has been noted to be restless, not eating, not sleeping with increasing agitation. She has been noncompliant with her medical therapy. In the emergency department, she has been placed under Lopez act. She was already seeing by hospitalist due to uncontrolled hypertension secondary to noncompliance, also has acute kidney injury likely secondary to dehydration as well as from diuretics and abnormal urinalysis and has been started on Rocephin. On psychiatric evaluation today patient was very agitated, disorganized, disoriented, unable to provide any meaningful information for the psychiatric assessment. Patient had to be medicated with Haldol 1 mg IM in order to help her to calm down. I spoke personally with her daughter Eve Peng, who says that the patient came to weeks ago from [place]. There her caregiver was her other daughter, who allegedly was not taking good care of her. Patient has not been taking her medication for hypothyroidism and hypertension. Apparently in the past she was psychotropics for dementia. She clarifies that the patient doesn't have any psychiatric history, no suicidal attempts. 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 In the last 2 weeks, since the patient has been living with her in [place], patient has being presenting increased in intensity, severity and frequency episodes of aggressive behavior and agitation at home. She is interested in placing the patient in a more structured environment for her safety. On my examination today: Patient seen and examined. Chart reviewed. Case discussed with nursing staff reports that the patient has been quite agitated, kicking, biting and scratching at staff. The patient has a sitter who reports to me that the patient's behavior has been consistent throughout the morning. On my examination today, the patient is presently calm. She appears somewhat internally preoccupied and is muttering to herself. I cannot get her to follow simple or complex commands, nor will she answer any of my questions. She is exhibiting utilization behavior. She seems quite confused. Psychiatric interview is limited because of current mental status. I am unable to obtain any past psychiatric, family, chemical dependency or social history from this patient for this reason. Review of Systems ROS Limitations: Poor Historian Other Unable to obtain ROS because of current mental status Past Family Social History Coded Allergies: No Known Allergies (Unverified , 11/09/16) Past Medical History See electronic medical record Reported Medications Triamterene-Hydrochlorothiazide 37.5-25 Mg Cap1 Cap PO DAILY #30 CAP Ref 0 11/09/16 Amlodipine 2.5 Mg Tab2.5 Mg PO DAILY #30 TAB Ref 0 11/09/16 Current Medications Medications (Trade) Dose Ordered Sig/Laine Route Start Time Stop Time Status Last Admin (Norvasc) 2.5 mg DAILY PO 11/10/16 09:00 11/11/16 09:00 (Ceftin) 250 mg Q12HR PO 11/09/16 21:00 11/16/16 20:59 11/11/16 09:00 (Catapres) 0.1 mg Q6H PRN PO 11/09/16 14:15 (NS Flush) 2 ml UNSCH PRN IV FLUSH 11/09/16 14:15 (Tylenol) 650 mg Q4H PRN PO 11/09/16 14:15 (Zofran Inj) 4 mg Q6H PRN IVP 11/09/16 14:15 (Narcan Inj) 0.4 mg UNSCH PRN IV 11/09/16 14:15 (Katharine-Colace) 1 tab BID PO 11/09/16 21:00 11/11/16 09:00 (Senokot) 17.2 mg Q12H PRN PO 11/09/16 14:15 (Lactulose Liq) 30 ml DAILY PRN PO 11/09/16 14:15 (Atarax) 50 mg Q6H PRN PO 11/09/16 21:30 11/10/16 16:47 (Benadryl) 50 mg HS PRN PO 11/09/16 21:30 (Benadryl Inj) 50 mg HS PRN IM 11/09/16 21:30 (Tylenol) 650 mg Q4H PRN PO 11/09/16 21:30 (Milk Of Magnesia Liq) 30 ml DAILY PRN PO 11/09/16 21:30 (Mag-Al Plus Susp Liq) 30 ml Q6H PRN PO 11/09/16 21:30 Quetiapine Fumarate 25 mg 25 mg BID@09,12 PO 11/10/16 12:00 11/11/16 09:00 Ceftriaxone Sodium 1000 mg/ Sodium Chloride 100 ml @ 200 mls/hr Q24H PRN IV 11/10/16 11:00 11/10/16 23:01 (NS 1000 ml Inj) 1,000 ml @ 42 mls/hr [id number] IV 11/10/16 11:00 11/10/16 11:48 Family History See above Social History See above Patient's Strengths (min. 2) In a monitored setting. Retains some physical mobility. Physical Exam Physical examination completed by hospitalist custom decorating consultant. On my examination today, the patient appears to be in no acute physical distress. Left arm is quite edematous. No motor abnormalities noted but the patient does exhibit utilization behavior. Laboratories and vitals signs reviewed: Vital Signs Vital Signs Date Time Temp Pulse Resp B/P Pulse Ox O2 Delivery O2 Flow Rate FiO2 11/11/16 06:10 98.1 100 12 169/88 11/10/16 08:00 94 21 11/09/16 17:08 Nasal Cannula 2.00 I/O 11/10/16 11/10/16 11/10/16 07:59 15:59 23:59 Intake Total 480 ml 240 ml Balance 480 ml 240 ml Lab Results Item Value Date Time White Blood Count 7.1 TH/MM3 11/09/16 1229 Hemoglobin 12.8 GM/DL 11/09/16 1229 Platelet Count 266 TH/MM3 11/09/16 1229 Sodium Level 143 MEQ/L 11/11/16 0525 Potassium Level 3.9 MEQ/L 11/11/16 0525 Chloride Level 108 MEQ/L H 11/11/16 0525 Carbon Dioxide Level 25.9 MEQ/L 11/11/16 0525 Blood Urea Nitrogen 23 MG/DL H 11/11/16 0525 Creatinine 1.42 MG/DL H 11/11/16 0525 Aspartate Amino Transf (AST/SGOT) 19 U/L 11/09/16 1229 Alanine Aminotransferase (ALT/SGPT) 22 U/L 11/09/16 1229 Alkaline Phosphatase 91 U/L 11/09/16 1229 Urinalysis reviewed. Mental Status Examination Patient is in hospital gown. She is fairly disheveled. She is awake and alert but does not respond to any orientation questions. No motor abnormalities noted. Speech is largely nonsensical. Memory is suspected to be quite impaired. Unable to assess mood or thought content to any meaningful degree. Affect is blunted, tending towards flat. The patient appears internally preoccupied. Insight and judgment are currently absent. Assessment & Plan Problem List: (1) Dementia ICD Code: F03.90 Assessment & Plan Given the circumstances of the patient's presentation here, her behavior on the unit and her presentation on my examination today, I concur with Dr. Camarillo that the patient meets criteria for involuntary psychiatric hospitalization under the Lopez act. I have completed the second opinion paperwork. Further care as per Dr. Camarillo. Thank you very much for this consultation. Signing off. Problem Qualifiers (1) Dementia: Qualified Code: F03.91 - Dementia with behavioral disturbance, unspecified dementia type Dereje Ramirez MD Nov 11, 2016 12:42
--- NOTE | 2016-11-11 14:23 | HHI.PYPN ---
Subjective Remarks On psychiatric evaluation patient is non-cooperative, she is disoriented, disorganized, no following verbal commands, as per nursing staff she has been agitated, punching the fleming, people around, very difficult to handle in the unit. Was given Haldol 2 mg IM stat yesterday when necessary with a successful outcome. Review of Systems Other No somatic complaints Objective Alert: Yes [place]: Person Mood: Agitated Affect: Labile Memory Intact: Comment (not able to be as honest) Hallucinations: Other (she denies) Delusions: No Delusion Type: Other (not elicited) Suicidal: Ideation (no SI) Homicidal: Ideation (no HI) Insight/Judgment Poor Labs Test 11/11/16 05:25 Sodium Level 143 MEQ/L Potassium Level 3.9 MEQ/L Chloride Level 108 MEQ/L Carbon Dioxide Level 25.9 MEQ/L Anion Gap 9 MEQ/L Blood Urea Nitrogen 23 MG/DL Creatinine 1.42 MG/DL Estimat Glomerular Filtration 36 ML/MIN Rate Random Glucose 104 MG/DL Calcium Level 8.9 MG/DL Magnesium Level 2.3 MG/DL Date/Time Procedure Status Source Growth 11/09/16 13:10 Urine Culture - Final Complete Urine Catheterized Urine Escherichia Coli Vitals/IOs Vital Signs Date Time Temp Pulse Resp B/P Pulse Ox O2 Delivery O2 Flow Rate FiO2 11/11/16 06:10 98.1 100 12 169/88 11/10/16 08:00 94 21 11/09/16 17:08 Nasal Cannula 2.00 Intake and Output 11/10/16 11/10/16 11/10/16 07:59 15:59 23:59 Intake Total 480 ml 240 ml Balance 480 ml 240 ml Assessment & Plan Problem List: (1) Dementia Assessment & Plan: Patient is confused, severely demented, showing episodic severe agitation and aggressive behavior, combativeness. Sleeping poorly at night. We'll increase the Seroquel to 50 g twice a day, will add Haldol 2 mg IM every 8 hours when necessary aggressive behavior and agitation. ICD Code: F03.90 Assessment & Plan Estimated LOS: days Justification for Cont. Inpt. Patient has a very high risk to decompensate at a lower level of care. Problem Qualifiers (1) Dementia: Qualified Code: F03.91 - Dementia with behavioral disturbance, unspecified dementia type Emmanuel Camarillo MD Nov 11, 2016 14:23
[2016-11-12 02:45] VITALS: BP 140/90; PULSE 104; RESP 16; TEMP 98; O2SAT 97
[2016-11-12] MEDS ORDERED: SODIUM CHLOR 0.9% 1000 ML INJ 1,000 ML IV PRN ×2 (03:15→11:00)
[2016-11-12 05:17] VITALS: BP 175/85; PULSE 97; RESP 18; TEMP 99.4; O2SAT 96
[2016-11-12 05:40] VITALS: BP 140/90; RESP 16
--- NOTE | 2016-11-12 08:29 | HHI.PR ---
Subjective Remarks Follow-up UTI and acute kidney injury. IV fluids restarted last night because of poor oral intake. Consumed 100 % of breakfast today. More alert and interactive today. Discussed with RN Objective Vitals Vital Signs Date Time Temp Pulse Resp B/P Pulse Ox O2 Delivery O2 Flow Rate FiO2 11/12/16 05:40 16 140/90 11/12/16 05:17 99.4 97 18 175/85 96 11/12/16 02:45 98.0 104 16 140/90 97 I/O 11/11/16 11/11/16 11/11/16 11/12/16 11/12/16 11/12/16 07:00 15:00 23:00 07:00 15:00 23:00 Intake Total 1222 ml 240 ml 420 ml 313 ml Balance 1222 ml 240 ml 420 ml 313 ml Intake Oral 660 ml 240 ml 420 ml 120 ml IV Total 562 ml 193 ml # Voids 3 4 Result Diagram: 11/09/16 1229 11/11/16 0525 Imaging Last Impressions Head CT 11/09/16 1214 Signed Impressions: Service Date/Time: Wednesday, November 09, 2016 13:18 - CONCLUSION: Chronic and small vessel ischemic changes without any evidence for acute hemorrhage or mass effect. Kasia Gallego MD Chest X-Ray 11/09/16 1214 Signed Impressions: Service Date/Time: Wednesday, November 09, 2016 12:31 - CONCLUSION: 1. 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 Formal PA and lateral views may be obtained if there is clinical findings suspicious for left lower lobe process. 2. Otherwise, no acute cardiopulmonary disease. David Richey MD Objective Remarks GENERAL: This is a well-nourished, well-developed patient, in no apparent distress. SKIN: No rashes, ecchymoses or lesions. Cool and dry. HEAD: Atraumatic. Normocephalic. No temporal or scalp tenderness. EYES: Pupils equal round and reactive. Extraocular motions intact. No scleral icterus. ENT: Nose without bleeding, purulent drainage or septal hematoma. Throat without erythema, tonsillar hypertrophy or exudate. Uvula midline. Airway patent. NECK: Trachea midline. No JVD or lymphadenopathy. Supple, nontender, no meningeal signs. CARDIOVASCULAR: Regular rate and rhythm without murmurs, gallops, or rubs. RESPIRATORY: Clear to auscultation. Breath sounds equal bilaterally. No wheezes , rales, or rhonchi. GASTROINTESTINAL: Abdomen soft, non-tender, nondistended. No CVA tenderness. No guarding. MUSCULOSKELETAL: Extremities without clubbing, cyanosis with left upper extremity lymphedema secondary to breast cancer surgery. No joint tenderness, effusion, or edema noted. No calf tenderness. Negative Homans sign bilaterally. NEUROLOGICAL: More alert and interactive. Cranial nerves II through XII intact. Motor and sensory grossly within normal limits. Five out of 5 muscle strength in all muscle groups. Normal speech. A/P Assessment and Plan This is a 81-year-old female with a history of dementia. She was brought in by family because of increasing agitation. She moved from [place] about 2 weeks ago and has been noted to be restless, not eating, not sleeping with increasing agitation. She has been noncompliant with her medical therapy. In the emergency department, she has been placed under Lopez act. Consultation has been requested by her attending to evaluate and manage multiple medical conditions. Uncontrolled hypertension secondary to noncompliance. Improving increase Norvasc for better control with as needed clonidine Acute kidney injury likely secondary to dehydration as well as from diuretics. Improving but with poor oral intake continue IV hydration and avoid nephrotoxins. Obtain repeat BMP in the morning. Follow-up outside records for comparison Escherichia coli UTI obviously can contribute to her agitation. Received Rocephin in the emergency department. Continue Ceftin total of 3 days stop date tomorrow. Rocephin IV as needed if patient refuses to take Ceftin Repeat chest x-ray when patient more cooperative DVT prophylaxis with SCD. Patient is ambulatory. Discharge Planning Not medically stable and cleared for transfer to regular psychiatry floor at this time Herbert Parker MD Nov 12, 2016 08:29
[2016-11-12] MEDS: amLODIPine BESYLATE 5 MG TAB PO SCH (09:30)
[2016-11-12] MEDS: QUEtiapine FUMARATE 25 MG TAB PO SCH ×2 (09:37→12:39)
[2016-11-12] MEDS: DOCUSATE SODIUM 50 MG/SENNA 8.6 MG TAB PO SCH ×2 (09:37→21:00)
[2016-11-12] MEDS: CEFUROXIME AXETIL 250 MG TAB PO SCH ×2 (09:37→21:00)
[2016-11-12 11:20] LABS: BICARBONATE 21.9 MEQ/L (21.0-32.0); MAGNESIUM 2.2 MG/DL (1.5-2.5); POTASSIUM 4.1 MEQ/L (3.5-5.1)
[2016-11-12] MEDS: HALOPERIDOL LACTATE 5 MG/ML AMP IM PRN (11:26)
[2016-11-12] MEDS: hydrOXYzine HCL 50 MG TAB PO PRN (12:39)
--- NOTE | 2016-11-12 13:59 | HHI.PYPN ---
Subjective Remarks Patient seen and examined with nurse. Chart reviewed. Case discussed with nursing staff. Per nursing staff, patient somewhat restless and wandering. No physical aggression. On my examination today, slightly more understandable than last time I spoke with her. She does follow simple commands but is fairly apraxic. Psychiatric interview is severely limited by her apparent degree of cognitive impairment. No evidence side effects from medications. No physical complaints. Review of Systems ROS Limitations: Poor Historian Other ROS extremely limited because of cognitive impairment Objective Alert: Yes [place]: Person (answers to name) Mood: Other (restless) Affect: Blunted Memory Intact: Comment (suspect impaired) Hallucinations: Other (difficult to assess) Delusions: No Delusion Type: Other (difficult to assess) Suicidal: Ideation (none voiced) Homicidal: Ideation (none voiced) Insight/Judgment Poor Remarks No motor abnormalities noted. Utilization behavior continues. Left arm remains edematous. Labs Labs reviewed. Test 11/12/16 10:31 Sodium Level 139 MEQ/L Potassium Level 4.1 MEQ/L Chloride Level 109 MEQ/L Carbon Dioxide Level 21.9 MEQ/L Anion Gap 8 MEQ/L Blood Urea Nitrogen 24 MG/DL Creatinine 1.45 MG/DL Estimat Glomerular Filtration 35 ML/MIN Rate Random Glucose 131 MG/DL Calcium Level 9.1 MG/DL Magnesium Level 2.2 MG/DL Date/Time Procedure Status Source Growth 11/09/16 13:10 Urine Culture - Final Complete Urine Catheterized Urine Escherichia Coli Vitals/IOs Vital Signs Date Time Temp Pulse Resp B/P Pulse Ox O2 Delivery O2 Flow Rate FiO2 11/12/16 05:40 16 140/90 11/12/16 05:17 99.4 97 96 11/10/16 08:00 21 11/09/16 17:08 Nasal Cannula 2.00 Intake and Output 11/11/16 11/11/16 11/12/16 08:00 16:00 00:00 Intake Total 1222 ml 240 ml 420 ml Balance 1222 ml 240 ml 420 ml Assessment & Plan Problem List: (1) Dementia ICD Code: F03.90 Assessment & Plan Titrate Seroquel to 75 mg morning and noon to target behaviors. Appreciate ongoing hospitalist input. I have added fall precautions. Physical therapy is already consulted. Continue to monitor on the inpatient unit. Continue other medications and care as ordered. Justification for Cont. Inpt. Medication changes Discharge Planning Per Dr. Camarillo Problem Qualifiers (1) Dementia: Qualified Code: F03.91 - Dementia with behavioral disturbance, unspecified dementia type Dereje Ramirez MD Nov 12, 2016 13:59
[2016-11-12] MEDS ORDERED: QUEtiapine FUMARATE 25 MG TAB PO ONE (15:00)
[2016-11-12 18:00] VITALS: BP 141/80; PULSE 107; RESP 18; TEMP 98.6; O2SAT 95
[2016-11-13 05:43] VITALS: RESP 16; TEMP 98.7
[2016-11-13 06:02] VITALS: BP 168/98; RESP 16; TEMP 98.7
[2016-11-13] MEDS: amLODIPine BESYLATE 5 MG TAB PO SCH (08:08)
[2016-11-13] MEDS: DOCUSATE SODIUM 50 MG/SENNA 8.6 MG TAB PO SCH ×2 (08:08→20:46)
[2016-11-13] MEDS: CEFUROXIME AXETIL 250 MG TAB PO SCH (08:08)
[2016-11-13] MEDS: QUEtiapine FUMARATE 25 MG TAB PO SCH ×2 (08:09→12:00)
[2016-11-13 10:00] VITALS: BP 159/87; PULSE 107; RESP 16; TEMP 98.6; O2SAT 100
--- NOTE | 2016-11-13 10:29 | HHI.PR ---
Subjective Remarks Follow-up visit urinary tract infection, acute kidney injury. Patient seen and examined today. Confuse. Not answering to any questions. Not following any commands. As per nursing, patient has been walking around, ate some of her breakfast otherwise not really following any commands. Appears comfortable. Objective Vitals Vital Signs Date Time Temp Pulse Resp B/P Pulse Ox O2 Delivery O2 Flow Rate FiO2 11/13/16 06:02 98.7 16 168/98 11/13/16 05:43 98.7 16 11/12/16 18:00 98.6 107 18 141/80 95 I/O 11/12/16 11/12/16 11/12/16 11/13/16 11/13/16 11/13/16 07:00 15:00 23:00 07:00 15:00 23:00 Intake Total 313 ml 1360 ml 240 ml Balance 313 ml 1360 ml 240 ml Intake Oral 120 ml 960 ml 240 ml IV Total 193 ml 400 ml # Voids 4 2 2 Result Diagram: 11/09/16 1229 11/12/16 1031 Imaging Last Impressions Head CT 11/09/16 1214 Signed Impressions: Service Date/Time: Wednesday, November 09, 2016 13:18 - CONCLUSION: Chronic and small vessel ischemic changes without any evidence for acute hemorrhage or mass effect. Kasia Gallego MD Chest X-Ray 11/09/16 1214 Signed Impressions: Service Date/Time: Wednesday, November 09, 2016 12:31 - CONCLUSION: 1. 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 Formal PA and lateral views may be obtained if there is clinical findings suspicious for left lower lobe process. 2. Otherwise, no acute cardiopulmonary disease. David Richey MD Objective Remarks GENERAL: This is a well-nourished, well-developed patient, in no apparent distress. SKIN: Warm and dry. HEENT: Normocephalic. Pupils equal round and reactive. Nose without bleeding. Airway patent. NECK: Trachea midline. No JVD. Supple. CARDIOVASCULAR: Regular rate and rhythm without murmurs, gallops, or rubs. RESPIRATORY: Clear to auscultation. Breath sounds equal bilaterally. No wheezes , rales, or rhonchi. GASTROINTESTINAL: Abdomen soft, non-tender, nondistended. Bowel Sounds normoactive x4. MUSCULOSKELETAL: Extremities without clubbing, cyanosis. Left arm lymphedema NEUROLOGICAL: Awake and alert. Confuse. Does not follow any commands or answers any questions. Moves all extremities. Minimal verbalization. A/P Problem List: (1) Dementia ICD Code: F03.90 Status: Acute (2) UTI (urinary tract infection) ICD Code: N39.0 Status: Acute Assessment and Plan This is a 81-year-old female with a history of dementia. She was brought in by family because of increasing agitation. She moved from [place] about 2 weeks ago and has been noted to be restless, not eating, not sleeping with increasing agitation. She has been noncompliant with her medical therapy. In the emergency department, she has been placed under Lopez act. Consultation has been requested by her attending to evaluate and manage multiple medical conditions. Uncontrolled hypertension secondary to noncompliance. - Increase Norvasc for better control with as needed clonidine - Start metoprolol 25mg BID with parameters Acute kidney injury likely secondary to dehydration as well as from diuretics. - continue IV hydration and avoid nephrotoxins. - Encourage by mouth fluid intake - Trend BMP Escherichia coli UTI obviously can contribute to her agitation. - Received Rocephin in the emergency department. - To complete Ceftin total of 3 days - Rocephin IV as needed if patient refuses to take Ceftin Repeat chest x-ray when patient more cooperative DVT prophylaxis with SCD. Patient is ambulatory. Full Code Discussed with patient, nursing, Dr. Parker Problem Qualifiers (1) Dementia: Qualified Code: F03.91 - Dementia with behavioral disturbance, unspecified dementia type (2) UTI (urinary tract infection): Qualified Code: N30.00 - Acute cystitis without hematuria Jame Conteh [employer] Nov 13, 2016 10:29
--- NOTE | 2016-11-13 12:08 | HHI.PYPN ---
Subjective Remarks Patient seen and examined with nurse. Chart reviewed. Oral intake remains somewhat poor. Case discussed with nursing staff. Behaviors in the setting of dementia decreased with titration of Seroquel. On my examination today, the patient is standing at the nursing station counter. She seems a little clearer today. She is able to answer simple questions, although her answers are often inaccurate. She gives the year as "[birth year] or [birth year]" and gives the location as "83." No side effects from medications. No physical complaints. Review of Systems ROS Limitations: Poor Historian Other Limited ROS because of cognitive impairment Objective Alert: Yes [place]: Person Mood: Calm Affect: Blunted Memory Intact: Comment (suspect impaired) Hallucinations: Other (not internally preoccupied) Delusions: No Delusion Type: Other (no arash delusions) Suicidal: Ideation (no SI voiced) Homicidal: Ideation (none voiced) Insight/Judgment Poor Remarks No motor abnormalities Labs Date/Time Procedure Status Source Growth 11/09/16 13:10 Urine Culture - Final Complete Urine Catheterized Urine Escherichia Coli Labs reviewed Vitals/IOs Vital Signs Date Time Temp Pulse Resp B/P Pulse Ox O2 Delivery O2 Flow Rate FiO2 11/13/16 06:02 98.7 16 168/98 11/12/16 18:00 107 95 11/10/16 08:00 21 11/09/16 17:08 Nasal Cannula 2.00 Intake and Output 11/12/16 11/12/16 11/12/16 07:59 15:59 23:59 Intake Total 553 ml 1120 ml 240 ml Balance 553 ml 1120 ml 240 ml Assessment & Plan Problem List: (1) Dementia ICD Code: F03.90 Assessment & Plan Continue Seroquel as ordered. Continue to monitor on the unit. Continue other care as ordered. Justification for Cont. Inpt. Risk for decompensation Discharge Planning Per Dr. Quan Problem Qualifiers (1) Dementia: Qualified Code: F03.91 - Dementia with behavioral disturbance, unspecified dementia type Dereje Ramirez MD Nov 13, 2016 12:08
[2016-11-13] MEDS: HALOPERIDOL LACTATE 5 MG/ML AMP IM PRN (15:51)
[2016-11-13 16:00] VITALS: BP 158/81; PULSE 92; RESP 18; TEMP 98.3
[2016-11-13] MEDS: METOPROLOL TARTRATE 25 MG TAB PO SCH (20:46)
[2016-11-13 22:08] VITALS: BP 153/87; PULSE 65; RESP 20; TEMP 98.6; O2SAT 96
[2016-11-14 06:00] VITALS: BP 172/75; PULSE 62; RESP 18; TEMP 97.6; O2SAT 96
[2016-11-14] MEDS: amLODIPine BESYLATE 5 MG TAB PO SCH ×2 (09:18→20:22)
[2016-11-14] MEDS: QUEtiapine FUMARATE 25 MG TAB PO SCH ×2 (09:18→11:55)
[2016-11-14] MEDS: DOCUSATE SODIUM 50 MG/SENNA 8.6 MG TAB PO SCH ×2 (09:18→20:22)
[2016-11-14] MEDS: METOPROLOL TARTRATE 25 MG TAB PO SCH ×2 (09:19→20:22)
--- NOTE | 2016-11-14 11:06 | HHI.PR ---
Objective Vitals Vital Signs Date Time Temp Pulse Resp B/P Pulse Ox O2 Delivery O2 Flow Rate FiO2 11/14/16 06:00 97.6 62 18 172/75 96 11/13/16 22:08 98.6 65 20 153/87 96 11/13/16 16:00 98.3 92 18 158/81 I/O 11/13/16 11/13/16 11/13/16 11/14/16 11/14/16 11/14/16 07:00 15:00 23:00 07:00 15:00 23:00 Intake Total 360 ml 1320 ml 240 ml Balance 360 ml 1320 ml 240 ml Intake Oral 360 ml 1320 ml 240 ml # Voids 2 Result Diagram: 11/09/16 1229 11/12/16 1031 Objective Remarks GENERAL: This is a well-nourished, well-developed patient, in no apparent distress. SKIN: Warm and dry. HEENT: Normocephalic. Pupils equal round and reactive. Nose without bleeding. Airway patent. NECK: Trachea midline. No JVD. Supple. CARDIOVASCULAR: Regular rate and rhythm without murmurs, gallops, or rubs. RESPIRATORY: Clear to auscultation. Breath sounds equal bilaterally. No wheezes , rales, or rhonchi. GASTROINTESTINAL: Abdomen soft, non-tender, nondistended. Bowel Sounds normoactive x4. MUSCULOSKELETAL: Extremities without clubbing, cyanosis. Left arm lymphedema NEUROLOGICAL: Awake and alert. Confuse. Does not follow any commands or answers any questions. Moves all extremities. Minimal verbalization. A/P Problem List: (1) Dementia ICD Code: F03.90 Status: Acute (2) UTI (urinary tract infection) ICD Code: N39.0 Status: Acute Assessment and Plan This is a 81-year-old female with a history of dementia. She was brought in by family because of increasing agitation. She moved from [place] about 2 weeks ago and has been noted to be restless, not eating, not sleeping with increasing agitation. She has been noncompliant with her medical therapy. In the emergency department, she has been placed under Lopez act. Consultation has been requested by her attending to evaluate and manage multiple medical conditions. Uncontrolled hypertension secondary to noncompliance. - Increase Norvasc for better control with as needed clonidine - Start metoprolol 25mg BID with parameters Acute kidney injury likely secondary to dehydration as well as from diuretics. - continue IV hydration and avoid nephrotoxins. - Encourage by mouth fluid intake - Trend BMP Escherichia coli UTI obviously can contribute to her agitation. - Received Rocephin in the emergency department. - To complete Ceftin total of 3 days - Rocephin IV as needed if patient refuses to take Ceftin Repeat chest x-ray when patient more cooperative DVT prophylaxis with SCD. Patient is ambulatory. Full Code Discussed with patient, nursing, Dr. Parker Problem Qualifiers (1) Dementia: Qualified Code: F03.91 - Dementia with behavioral disturbance, unspecified dementia type (2) UTI (urinary tract infection): Qualified Code: N30.00 - Acute cystitis without hematuria Jame Conteh Nov 14, 2016 11:06
--- NOTE | 2016-11-14 13:12 | HHI.PYPN ---
Subjective Remarks Patient is seen today for psychiatric evaluation, as per nurse in charge patient has been showing better control behavior, extremely agitated, but less episodes of aggressive behavior and hostility. Patient is sleepy, no giving much information for reevaluation, however reports good mood, she says that she feels happy the unit, denies suicidal or homicidal ideation, denies visual and auditory hallucinations. She knows that she is in the hospital, doesn't know the date. Compliant with medications, no significant side effects. Review of Systems Other No somatic complaints Objective Alert: Yes [place]: Person Mood: Calm Affect: Blunted Memory Intact: Comment (suspect impaired) Hallucinations: Other (not internally preoccupied) Delusions: No Delusion Type: Other (no arash delusions) Suicidal: Ideation (no SI voiced) Homicidal: Ideation (none voiced) Insight/Judgment Poor Vitals/IOs Vital Signs Date Time Temp Pulse Resp B/P Pulse Ox O2 Delivery O2 Flow Rate FiO2 11/14/16 06:00 97.6 62 18 172/75 96 11/10/16 08:00 21 Intake and Output 11/13/16 11/13/16 11/14/16 08:00 16:00 00:00 Intake Total 360 ml 1320 ml Balance 360 ml 1320 ml Assessment & Plan Problem List: (1) Dementia Assessment & Plan: Continue current psychotropic, continue monitoring vital signs behavior ICD Code: F03.90 Assessment & Plan Estimated LOS: days Justification for Cont. Inpt. Patient with an elevated risk to decompensate in a less structured environment. Problem Qualifiers (1) Dementia: Qualified Code: F03.91 - Dementia with behavioral disturbance, unspecified dementia type Emmanuel Camarillo MD Nov 14, 2016 13:12
--- NOTE | 2016-11-14 13:55 | HHI.PR ---
Subjective Remarks Follow-up hypertension and kidney injury. Remains confused with erratic oral intake according to family this is baseline. Still waiting for outside records. Discussed with RN, if repeat BMP shows improved kidney function can be transferred to regular psychiatric floor Objective Vitals Vital Signs Date Time Temp Pulse Resp B/P Pulse Ox O2 Delivery O2 Flow Rate FiO2 11/14/16 06:00 97.6 62 18 172/75 96 11/13/16 22:08 98.6 65 20 153/87 96 11/13/16 16:00 98.3 92 18 158/81 I/O 11/13/16 11/13/16 11/13/16 11/14/16 11/14/16 11/14/16 07:00 15:00 23:00 07:00 15:00 23:00 Intake Total 360 ml 1320 ml 240 ml Balance 360 ml 1320 ml 240 ml Intake Oral 360 ml 1320 ml 240 ml # Voids 2 Result Diagram: 11/09/16 1229 11/12/16 1031 Imaging Last Impressions Head CT 11/09/16 1214 Signed Impressions: Service Date/Time: Wednesday, November 09, 2016 13:18 - CONCLUSION: Chronic and small vessel ischemic changes without any evidence for acute hemorrhage or mass effect. Kasia Gallego MD Chest X-Ray 11/09/16 1214 Signed Impressions: Service Date/Time: Wednesday, November 09, 2016 12:31 - CONCLUSION: 1. 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 Formal PA and lateral views may be obtained if there is clinical findings suspicious for left lower lobe process. 2. Otherwise, no acute cardiopulmonary disease. David Richey MD Objective Remarks Well-developed, well-nourished in no distress pupils equally reactive to light no jaundice Oral mucosa moist no signs of dehydration Lungs clear to auscultation Regular rate and rhythm no murmur She is awake but confused moving all extremities A/P Problem List: (1) Dementia ICD Code: F03.90 Status: Acute (2) UTI (urinary tract infection) ICD Code: N39.0 Status: Acute Assessment and Plan This is a 81-year-old female with a history of dementia. She was brought in by family because of increasing agitation. She moved from [place] about 2 weeks ago and has been noted to be restless, not eating, not sleeping with increasing agitation. She has been noncompliant with her medical therapy. In the emergency department, she has been placed under Lopez act. Consultation has been requested by her attending to evaluate and manage multiple medical conditions. Uncontrolled hypertension secondary to noncompliance. Improving increase Norvasc to 5 mg twice a day for better control with as needed clonidine. Continue Lopressor Acute kidney injury likely secondary to dehydration as well as from diuretics. Improving but with erratic oral intake. Off IV hydration for over a day. If repeat BMP shows improved renal dysfunction discontinue IV hydration. Avoid nephrotoxins. Follow-up outside records for comparison Escherichia coli UTI obviously can contribute to her agitation. Received Rocephin in the emergency department. Status post Ceftin Repeat chest x-ray when patient more cooperative DVT prophylaxis with SCD. Patient is ambulatory. Problem Qualifiers (1) Dementia: Qualified Code: F03.91 - Dementia with behavioral disturbance, unspecified dementia type (2) UTI (urinary tract infection): Qualified Code: N30.00 - Acute cystitis without hematuria Herbert Parker MD Nov 14, 2016 13:55
[2016-11-14 18:27] VITALS: BP 165/97; PULSE 74; RESP 16; TEMP 98.9
[2016-11-14 20:00] VITALS: BP 138/72; PULSE 76
[2016-11-14] MEDS: HALOPERIDOL LACTATE 5 MG/ML AMP IM PRN (20:22)
[2016-11-14 21:43] LABS: BICARBONATE 21.5 MEQ/L (21.0-32.0); MAGNESIUM 2.1 MG/DL (1.5-2.5); POTASSIUM 4.1 MEQ/L (3.5-5.1)
[2016-11-15 06:25] VITALS: BP 147/78; PULSE 85; RESP 16; TEMP 97.3
[2016-11-15] MEDS: QUEtiapine FUMARATE 25 MG TAB PO SCH (08:15)
[2016-11-15] MEDS: DOCUSATE SODIUM 50 MG/SENNA 8.6 MG TAB PO SCH ×2 (08:15→21:00)
[2016-11-15] MEDS: amLODIPine BESYLATE 5 MG TAB PO SCH ×2 (08:15→21:00)
[2016-11-15] MEDS: METOPROLOL TARTRATE 25 MG TAB PO SCH ×2 (08:15→21:00)
[2016-11-15] MEDS ORDERED: amLODIPine BESYLATE 5 MG TAB PO SCH (09:00)
[2016-11-15] MEDS: HALOPERIDOL LACTATE 5 MG/ML AMP IM PRN (12:42)
--- NOTE | 2016-11-15 15:50 | HHI.PYPN ---
Subjective Remarks Patient seen today for psychiatric reevaluation, patient sleeping, seems to be sedated, difficult to arouse. As per nurses patient has been displaying better behavior, less aggressive, as a have any episodes of hostility and physical aggression in the last 24 hours. Review of Systems ROS Limitations: Uncooperative Objective Alert: Yes [place]: Person Mood: Calm Affect: Blunted Memory Intact: Comment (suspect impaired) Hallucinations: Other (not internally preoccupied) Delusions: No Delusion Type: Other (no arash delusions) Suicidal: Ideation (no SI voiced) Homicidal: Ideation (none voiced) Insight/Judgment poor Labs Test 11/14/16 20:43 Sodium Level 140 MEQ/L Potassium Level 4.1 MEQ/L Chloride Level 110 MEQ/L Carbon Dioxide Level 21.5 MEQ/L Anion Gap 9 MEQ/L Blood Urea Nitrogen 24 MG/DL Creatinine 1.30 MG/DL Estimat Glomerular Filtration 39 ML/MIN Rate Random Glucose 102 MG/DL Calcium Level 9.4 MG/DL Magnesium Level 2.1 MG/DL Vitals/IOs Vital Signs Date Time Temp Pulse Resp B/P Pulse Ox O2 Delivery O2 Flow Rate FiO2 11/15/16 06:25 97.3 85 16 147/78 11/14/16 06:00 96 Intake and Output 11/14/16 11/14/16 11/14/16 07:59 15:59 23:59 Intake Total 240 ml 840 ml Balance 240 ml 840 ml Assessment & Plan Problem List: (1) Dementia Assessment & Plan: Patient has been showing oversedation during the day. Will decrease Seroquel to 50 mg a.m. Will increase Seroquel at bedtime 100 mg. Continue monitoring behavior and mood. ICD Code: F03.90 Assessment & Plan Estimated LOS: days Justification for Cont. Inpt. Patient has an elevated risk to decompensate out on a structure environment. Problem Qualifiers (1) Dementia: Qualified Code: F03.91 - Dementia with behavioral disturbance, unspecified dementia type Emmanuel Camarillo MD Nov 15, 2016 15:50
[2016-11-15 17:45] VITALS: BP 167/81; PULSE 81; RESP 18; TEMP 98.4; O2SAT 94
--- NOTE | 2016-11-15 18:28 | HHI.PR ---
Subjective Remarks Written by Janneth Toribio, acting as scribe for Dr. Todd on 11/15/16 at 18:25. Follow-up hypertension and kidney injury. Remains confused with erratic oral intake according to family/prior charting this is baseline. Still waiting for outside records. Discussed with RN, if repeat BMP shows improved kidney function can be transferred to regular psychiatric floor Offers no complaints at this time is unreliable historian appears to be in no acute distress Objective Vitals Vital Signs Date Time Temp Pulse Resp B/P Pulse Ox O2 Delivery O2 Flow Rate FiO2 11/15/16 17:45 98.4 81 18 167/81 94 11/15/16 06:25 97.3 85 16 147/78 11/14/16 20:00 76 138/72 11/14/16 18:27 98.9 74 16 165/97 I/O 11/14/16 11/14/16 11/14/16 11/15/16 11/15/16 11/15/16 07:00 15:00 23:00 07:00 15:00 23:00 Intake Total 240 ml 840 ml 0 ml 240 ml 240 ml Balance 240 ml 840 ml 0 ml 240 ml 240 ml Intake Oral 240 ml 840 ml 0 ml 240 ml 240 ml # Voids 3 1 Result Diagram: 11/14/162042 Objective Remarks Well-developed, well-nourished in no distress pupils equally reactive to light no jaundice Oral mucosa moist no signs of dehydration Lungs clear to auscultation Regular rate and rhythm no murmur A/P Problem List: (1) Dementia ICD Code: F03.90 Status: Acute (2) UTI (urinary tract infection) ICD Code: N39.0 Status: Acute Assessment and Plan This is a 81-year-old female with a history of dementia. She was brought in by family because of increasing agitation. She moved from [place] about 2 weeks ago and has been noted to be restless, not eating, not sleeping with increasing agitation. She has been noncompliant with her medical therapy. In the emergency department, she has been placed under Lopez act. Consultation has been requested by her attending to evaluate and manage multiple medical conditions. Uncontrolled hypertension secondary to noncompliance. Improving increase Norvasc to 5 mg twice a day for better control with as needed clonidine. Continue Lopressor Acute kidney injury likely secondary to dehydration as well as from diuretics. Improving but with erratic oral intake. Off IV hydration for over a day. Creatinine improving Avoid nephrotoxins. Follow-up outside records for comparison Escherichia coli UTI may have contributed to her agitation. Has completed Rocephin IV and Ceftin by mouth DVT prophylaxis with SCD. Patient medically stable to transfer to psychiatric floor This note was transcribed by [email or web address] [Janneth Toribio]. I, Dr. Autumn Todd personally performed the history, physical exam, and medical decision making; and confirmed the accuracy of the information in the transcribed note. Authenticated by Dr. Autumn Todd on 11/15/16 at 1835. Problem Qualifiers (1) Dementia: Qualified Code: F03.91 - Dementia with behavioral disturbance, unspecified dementia type (2) UTI (urinary tract infection): Qualified Code: N30.00 - Acute cystitis without hematuria Janneth Toribio Nov 15, 2016 18:28 Autumn Todd MD Nov 15, 2016 19:19
[2016-11-15] MEDS: QUEtiapine FUMARATE 100 MG TAB PO SCH (21:00)
[2016-11-16 06:08] VITALS: BP 145/86; PULSE 76; RESP 16; TEMP 98.9; O2SAT 93
[2016-11-16] MEDS: METOPROLOL TARTRATE 25 MG TAB PO SCH ×2 (08:57→20:49)
[2016-11-16] MEDS: amLODIPine BESYLATE 5 MG TAB PO SCH ×2 (08:57→20:50)
[2016-11-16] MEDS: DOCUSATE SODIUM 50 MG/SENNA 8.6 MG TAB PO SCH ×2 (08:57→20:50)
[2016-11-16] MEDS: QUEtiapine FUMARATE 25 MG TAB PO SCH (08:57)
--- NOTE | 2016-11-16 10:11 | HHI.PR ---
Subjective Remarks Follow-up UTI, hypertension and kidney injury. Seen in room sitting up in chair with sitter at bedside. More verbal today but remains confused. Offers no complaints at this time is unreliable historian appears to be in no acute distress Objective Vitals Vital Signs Date Time Temp Pulse Resp B/P Pulse Ox O2 Delivery O2 Flow Rate FiO2 11/16/16 06:08 98.9 76 16 145/86 93 11/15/16 17:45 98.4 81 18 167/81 94 I/O 11/15/16 11/15/16 11/15/16 11/16/16 11/16/16 11/16/16 07:00 15:00 23:00 07:00 15:00 23:00 Intake Total 0 ml 240 ml 480 ml 480 ml Balance 0 ml 240 ml 480 ml 480 ml Intake Oral 0 ml 240 ml 480 ml 480 ml # Voids 1 1 Result Diagram: 11/14/162042 Objective Remarks Well-developed, well-nourished in no distress EOMI Oral mucosa moist no signs of dehydration Lungs clear to auscultation Regular rate and rhythm no murmur verbal, Confused, disorient x3. No focal deficits noted A/P Problem List: (1) Dementia ICD Code: F03.90 Status: Acute (2) UTI (urinary tract infection) ICD Code: N39.0 Status: Acute Assessment and Plan This is a 81-year-old female with a history of dementia. She was brought in by family because of increasing agitation. She moved from [place] about 2 weeks ago and has been noted to be restless, not eating, not sleeping with increasing agitation. She has been noncompliant with her medical therapy. In the emergency department, she has been placed under Lopez act. Consultation has been requested by her attending to evaluate and manage multiple medical conditions. Uncontrolled hypertension secondary to noncompliance. Improved with Norvasc to 5 mg twice a day for better control with as needed clonidine. Continue Lopressor Acute kidney injury likely secondary to dehydration as well as from diuretics. Improving but with erratic oral intake. Off IV hydration for over a day. Creatinine improving Avoid nephrotoxins. Follow-up outside records for comparison Escherichia coli UTI may have contributed to her agitation. Has completed Rocephin IV and Ceftin by mouth DVT prophylaxis with SCD. Patient medically stable to transfer to psychiatric floor Discussed with nursing, patient and Dr. Todd Problem Qualifiers (1) Dementia: Qualified Code: F03.91 - Dementia with behavioral disturbance, unspecified dementia type (2) UTI (urinary tract infection): Qualified Code: N30.00 - Acute cystitis without hematuria Janneth Toribio Nov 16, 2016 10:11 Janneth Toribio Nov 16, 2016 10:11
--- NOTE | 2016-11-16 11:22 | HHI.PYPN ---
Subjective Remarks Patient seen today for psychiatric evaluation, patient reports feeling much better today, she is pleasantly confused, disoriented in time and place. She reports good mood, she says that she is happy, denies suicidal and homicidal ideation. Her behavior has been stable in the last 24 hours. No aggressive behavior or agitation reported. No need of PRN medications. Review of Systems Other No somatic complaints Objective Alert: Yes [place]: Person Mood: Calm Affect: Blunted Memory Intact: Comment (suspect impaired) Hallucinations: Other (not internally preoccupied) Delusions: No Delusion Type: Other (no arash delusions) Suicidal: Ideation (no SI voiced) Homicidal: Ideation (none voiced) Insight/Judgment Poor Vitals/IOs Vital Signs Date Time Temp Pulse Resp B/P Pulse Ox O2 Delivery O2 Flow Rate FiO2 11/16/16 06:08 98.9 76 16 145/86 93 Intake and Output 11/15/16 11/15/16 11/15/16 07:59 15:59 23:59 Intake Total 0 ml 240 ml 480 ml Balance 0 ml 240 ml 480 ml Assessment & Plan Problem List: (1) Dementia Assessment & Plan: We'll continue current psychotropics, monitor behavior and mood. ICD Code: F03.90 Assessment & Plan Estimated LOS: days Justification for Cont. Inpt. Patient has an elevated risk of decompensation out of on a structured environment. Problem Qualifiers (1) Dementia: Qualified Code: F03.91 - Dementia with behavioral disturbance, unspecified dementia type Emmanuel Camarillo MD Nov 16, 2016 11:22
[2016-11-16 11:47] LABS: BICARBONATE 26.8 MEQ/L (21.0-32.0); POTASSIUM 3.9 MEQ/L (3.5-5.1)
[2016-11-16 18:00] VITALS: BP 146/92; PULSE 85; RESP 20; TEMP 97.6; O2SAT 97
[2016-11-16] MEDS: QUEtiapine FUMARATE 100 MG TAB PO SCH (20:50)
[2016-11-16 22:00] VITALS: BP 152/81; PULSE 69; RESP 18; O2SAT 93
[2016-11-17 02:00] VITALS: BP 134/64; PULSE 58; RESP 18; O2SAT 96
[2016-11-17 05:59] VITALS: BP 114/70; PULSE 71; RESP 16; TEMP 97.3
--- NOTE | 2016-11-17 09:27 | HHI.PR ---
Blank section for building Chart reviewed patient appears medically stable will sign off. If further assistance is needed please reconsult. Recommend patient follow up with PCP after DC Janneth Toribio Nov 17, 2016 09:27
[2016-11-17] MEDS ORDERED: QUET1TAB8 PO (09:40)
[2016-11-17] MEDS ORDERED: METO25TA3 PO (09:40)
[2016-11-17] MEDS ORDERED: QUET1TAB7 PO (09:40)
[2016-11-17] MEDS ORDERED: AMLO5 PO (09:40)
[2016-11-17] MEDS: DOCUSATE SODIUM 50 MG/SENNA 8.6 MG TAB PO SCH (10:21)
[2016-11-17] MEDS: amLODIPine BESYLATE 5 MG TAB PO SCH (10:21)
[2016-11-17] MEDS: METOPROLOL TARTRATE 25 MG TAB PO SCH (10:21)
[2016-11-17] MEDS: QUEtiapine FUMARATE 25 MG TAB PO SCH (10:21)
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
--- NOTE | 2016-11-17 13:55 | HHI.PR ---
Addendum to Inpatient Note Addendum Reason: Additional Documentation Additional Information Reconsulted for reported low oxygen saturation. The patient was seen and evaluated. Vitals taken, Oxygen saturation is 92%. Patient requires constant coaching to remain still to get a good waveform. educated staff about proper use of pulse ox machine. Assessment: The reported low sats were not accurate. DW RN and techs about proper use of pulse ox machine. Patient is medically stable. Will sign off. Please call or reconsult with questions. Autumn Todd MD Nov 17, 2016 13:54
== END 2016-11-17 15:30 | disposition home health service (06) | DRG 683 ==
LOC: NEPD 11:35 → NEDA 15:54 → H4EA 20:45 → H250 11-16 14:43
PROVIDERS: ADMIT Psychiatry & Neurology Psychiatry; ATTEND Psychiatry & Neurology Psychiatry
DX: N17.9 Acute kidney failure, unspecified (principal); N39.0 Urinary tract infection, site not specified; F03.91 Unspecified dementia, unspecified severity, with behavioral disturbance; E86.0 Dehydration; B96.20 Unspecified Escherichia coli [E. coli] as the cause of diseases classified elsewhere; I10 Essential (primary) hypertension; Z91.19 Patient's noncompliance with other medical treatment and regimen; E03.9 Hypothyroidism, unspecified
CPT/HCPCS: 70450; 71010; 76937; 80048; 80053; 80061; 81001; 82550; 83036; 83735; 84443; 84484; 85025; 85610; 85730; 87077; 87086; 87186; 93005; 96361; 96365; 96375; J0696; J1630; J2060; J7030